=== PATIENT | male | born 1970 | race Two or more races ===

== ENCOUNTER 2016-07-09 06:42 | Emergency (ER) | payer OTHER ==
[~2016-07-09] VITALS: Ht 180.3 cm; Wt 95.3 kg
[2016-07-09 06:48] VITALS: BP 149/87
[2016-07-09] MEDS ORDERED: NAPROXEN 250 MG TABLET ONE (07:13)
[2016-07-09] MEDS: NAPROXEN 250 MG TABLET PO ONE (07:30)
== END 2016-07-09 07:33 | disposition home or self-care (01) ==
LOC: ER 06:42
DX: K08.89 Other specified disorders of teeth and supporting structures (principal); I10 Essential (primary) hypertension; M54.5 Low back pain; G89.29 Other chronic pain; F17.200 Nicotine dependence, unspecified, uncomplicated; Z71.6 Tobacco abuse counseling
CPT/HCPCS: A4606; Z7610